=== PATIENT | female | born 1940 | race Caucasian/White ===

== ENCOUNTER → 2017-02-05 | Outpatient (CLI) | payer OTHER | LOC: FIMAGING 11:46 | PROVIDERS: ATTEND Internal Medicine | DX: Z12.31 Encounter for screening mammogram for malignant neoplasm of breast (principal); Z80.3 Family history of malignant neoplasm of breast | CPT/HCPCS: G0202 ==

== ENCOUNTER 2017-10-20 10:35 | Emergency (ER) | payer OTHER ==
[2017-10-20 10:50] VITALS: PULSE 70; RESP 16
--- NOTE | 2017-10-20 11:08 | EDPHY ---
H & P Stated Complaint: R wring finger injury Time Seen by Provider: 10/20/17 11:00 HPI/ROS: CHIEF COMPLAINT: Right hand injury HISTORY OF PRESENT ILLNESS: 77-year-old female arrives via private vehicle complaining of acute right hand and finger pain after she was walking shortly prior to arrival, tripped on a dog's leash landing on her outstretched right hand. She notes a deformity to her 4th digit as well as bleeding from the PIP joint. She also notes right elbow pain right wrist pain. She denies: Head injury, midline C-spine pain, peripheral paresthesia, weakness, numbness, chest pain or trauma, back pain or trauma, alcohol use. Last oral intake was at 10:00 a.m. REVIEW OF SYSTEMS: A ten point review of systems was performed and is negative with the exception of the items mentioned in the HPI PAST MEDICAL/SURGICAL HISTORY: no anticoagulant use, no relevant medical/ surgical history SOCIAL HISTORY: denies alcohol use at time of incident PHYSICAL EXAM 1) GENERAL: Well-developed, well-nourished, alert and oriented. Appears to be in no acute distress. Answering questions appropriately. 2) HEAD: Normocephalic, atraumatic 3) HEENT: Pupils equal, round, reactive to light bilaterally. Negative Horners. Nasopharynx, oropharynx, clear. No deformity or angulation of nose. No septal hematoma. No rhinorrhea. No oral trauma. Ears bilaterally with normal tympanic membranes. No hemotympanum. No fluid or blood in the external auditory canal. No raccoon eyes. No Rodgers sign. Teeth are normally aligned with no gross malocclusion, TMJ bilaterally nontender, facial bones nontender including the zygomatic arch, maxilla mandible. 4) NECK: No cervical collar is on. Posterior cervical spine is nontender, no stepoff, no effusion. Full range of motion which does not elicit any midline cervical spine pain, no posterior midline tenderness, no step-off. 5) LUNGS: Clear to auscultation bilaterally, no wheezes, no rhonchi, no retractions. No obvious signs of trauma. No chest wall pain. No flaring, no grunting. Moving symmetrically. No crepitus. 6) HEART: Regular rate and rhythm, 7) ABDOMEN: No guarding, no rebound, no focal tenderness, no peritoneal signs, no signs of trauma, no ecchymosis 8) MUSCULOSKELETAL: Right upper extremity: Noted lateral deformity of the 4th digit at the PIP joint with laceration on the palmar aspect measuring 2 cm. Palpable osseous structure. . Full sensation two-point discrimination intact distally. Unable to assess flexor function initially. Moving all extremities, no focal areas of tenderness, no obvious trauma. 9) BACK: No midline vertebral tenderness, no fluctuance, no step-off, no obvious trauma, no visual or palpable abnormality. 10) SKIN: No laceration. No abrasion DIFFERENTIAL DIAGNOSIS: In no particular include but limited to open fracture, open dislocation, closed dislocation, closed fracture - Personal History Current Tetanus/Diphtheria Vaccine: Yes Current Tetanus Diphtheria and Acellular Pertussis (TDAP): Yes - Medical/Surgical History Hx Asthma: No Hx Chronic Respiratory Disease: No Hx Diabetes: No Hx Cardiac Disease: Yes Hx Renal Disease: No Hx Cirrhosis: No Hx Alcoholism: No Hx HIV/AIDS: No Hx Splenectomy or Spleen Trauma: No Other PMH: DVT 2003, L foot surgery, SSS, - Social History Smoking Status: Never smoked Constitutional: Initial Vital Signs Temperature (C) 36.9 C 10/20/17 10:46 Heart Rate 70 10/20/17 10:46 Respiratory Rate 16 10/20/17 10:46 Blood Pressure 168/81 H 10/20/17 10:46 O2 Sat (%) 93 10/20/17 10:46 O2 Delivery Mode Room Air Allergies/Adverse Reactions: No Known Allergies Allergy (Unverified 10/20/17 10:46) Home Medications: Medication Instructions Recorded Cephalexin [Keflex] 500 mg PO TID 7 Days cap 10/20/17 Ibuprofen [Motrin (*)] 800 mg PO Q6 #7 tab 10/20/17 Medical Decision Making - Diagnostics Imaging Results: Imaging Impressions Finger X-Ray 10/20/17 10:56 Impression: Fracture dislocation of the right fourth proximal interphalangeal joint. Wrist X-Ray 10/20/17 11:02 Impression: 1. No definite fracture of the right wrist. 2. Severe osteoarthritis right first carpometacarpal joint. Elbow X-Ray 10/20/17 11:03 Impression: No evidence of right elbow fracture, dislocation, or joint effusion. Hand X-Ray 10/20/17 11:50 Impression: 1. No residual dislocation of the right fourth proximal phalanx. 2. Small fracture fragments from the fourth proximal phalanx head again noted. Images reviewed myself Procedures: Procedure: Dislocation reduction. Digital nerve block of 0.5% bupivacaine without epinephrine administered by myself. This is allowed to take effect at which point the dislocation of the 4th digit at the PIP joint was reduced using traction and counter traction technique without complications. Post reduction the patient's neurovascular exam is normal. Post reduction x-ray demonstrates reduction of the joint to the anatomic position. The procedure was performed by myself. Procedure: Splint 1. Aluminum finger was applied by ER tablet technician. After application of the splint I returned and re-examined the patient. The splint was adequately immobilizing the joint and distal to the splint the patient's circulation and sensation were intact. Patient shows no signs of compartment syndrome. Was given orthopedic precautions. Procedure: Splint 2. In upper extremity sling was applied by ER tablet technician. After application of the splint I returned and re-examined the patient. The splint was adequately immobilizing the joint and distal to the splint the patient's circulation and sensation were intact. Patient shows no signs of compartment syndrome. Was given orthopedic precautions. Procedure: Laceration repair. I explained the indications, risks and benefits for both laceration repair and anesthetic administration. Verbal consent was obtained from the patient. The laceration on the 4th digit was anesthetized using 0.5% bupivicaine without epinephrine digital nerve block. After anesthetic administered the patient was observed for a period of time and had no apparent adverse effects. The wound was cleaned, prepped, draped in normal sterile fashion and explored to its base. No foreign body seen, no foreign bodies palpated. No gross FDS or FDP dysfunction. Traumatic arthrotomy not ruled out on exam. The wound was repaired with 5 simple interrupted 5 O Prolene sutures . The wound repair was complex. The procedure was performed by myself. Patient has been informed that scarring will occur, although efforts have been made to minimize this. ED Course/Re-evaluation: 12:20 p.m.: Patient is noted to have an open fracture dislocation of the 4th digit. Traumatic arthrotomy is not ruled out. Phone consultation with on-call hand surgery Dr. Juan Pablo Campoverde who recommends follow up on Sunday (today is Sunday). He agrees with the plan of irrigation wound closure antibiotics splint and follow-up. Care of patient under supervision of secondary supervising physician Dr Fournier . - Data Points Medications Given: Discontinued Medications Cephalexin HCl (Keflex) 500 mg PO EDNOW ONE PRN Reason: Protocol Stop: 10/20/17 13:14 Last Admin: 10/20/17 13:16 Dose: 500 mg Ibuprofen (Motrin) 600 mg PO EDNOW ONE Stop: 10/20/17 12:06 Last Admin: 10/20/17 12:00 Dose: 600 mg Departure - Departure Disposition: Home, Routine, Self-Care Clinical Impression: Elbow pain, right Open finger dislocation Qualifiers: Encounter type: initial encounter Qualified Code(s): S63.259A - Unspecified dislocation of unspecified finger, initial encounter Condition: Good Instructions: Elbow Sprain (ED), Finger Dislocation (ED) Additional Instructions: Return to the ER if you develop redness, swelling, discharge, warmth to the wound, red streaks going up your arm, or any other symptoms that concern you. Referrals: Osiel Campoverde MD [Medical Doctor] - 10/22/17 Prescriptions: Cephalexin [Keflex] 500 mg PO TID 7 Days cap Ibuprofen [Motrin (*)] 800 mg PO Q6 #7 tab
[2017-10-20] MEDS ORDERED: IBUPROFEN 600 MG TAB PO ONE ×2 (12:04→12:05)
[2017-10-20] MEDS ORDERED: CEPHALEXIN 500 MG CAP PO ONE ×2 (13:12→13:13)
[2017-10-20 13:44] VITALS: BP 168/63; TEMP 97.9; O2SAT 95
== END 2017-10-20 13:44 | disposition home or self-care (01) ==
PROC: 0RSWXZZ Reposition Right Finger Phalangeal Joint, External Approach (ICD-10-PCS; principal; 2017-10-20)
PROC: 0HQFXZZ Repair Right Hand Skin, External Approach (ICD-10-PCS; 2017-10-20)
DX: S63.284A Dislocation of proximal interphalangeal joint of right ring finger, initial encounter (principal); S61.214A Laceration without foreign body of right ring finger without damage to nail, initial encounter; S59.901A Unspecified injury of right elbow, initial encounter; W01.0XXA Fall on same level from slipping, tripping and stumbling without subsequent striking against object, initial encounter; Y99.8 Other external cause status; Y93.K1 Activity, walking an animal
CPT/HCPCS: 12001; 26770; 73080; 73110; 73130; 73140; 99283; L3925

== ENCOUNTER 2018-10-22 16:20 | Emergency (ER) | payer OTHER ==
[2018-10-22 16:27] VITALS: BP 177/92
--- NOTE | 2018-10-22 17:31 | EDPHY ---
H & P Stated Complaint: R hip pain s/p fall Time Seen by Provider: 10/22/18 17:01 HPI/ROS: Chief complaint: Right hip pain History of present illness: This is a 78-year-old female who presents to the emergency department for right hip pain. Approximately an hour and half ago she slipped on ice falling directly onto her right hip. Since then she has had pain. The pain is primarily when she moves the hip. She is comfortable when she does not move it. She has been able to walk on it. She denies associated signs or symptoms including no abnormal coolness or paresthesias in the leg. She denies trauma to other parts of the body. - Personal History Current Tetanus/Diphtheria Vaccine: Yes Current Tetanus Diphtheria and Acellular Pertussis (TDAP): Yes - Medical/Surgical History Hx Asthma: No Hx Chronic Respiratory Disease: No Hx Diabetes: No Hx Cardiac Disease: Yes Hx Renal Disease: No Hx Cirrhosis: No Hx Alcoholism: No Hx HIV/AIDS: No Hx Splenectomy or Spleen Trauma: No Other PMH: DVT 2003, L foot surgery, SSS, - Social History Smoking Status: Never smoked - Physical Exam Exam: General: Alert, nontoxic. Skin: No open wounds to the right lower extremity. Musculoskeletal: Tenderness over the lateral aspect of the right hip. There is also tenderness over the anterior aspect of the pelvis on the right side. No crepitus or bony deformity. There is mild discomfort when I abduct the hip. Otherwise movement without discomfort. The rest of the right lower extremities unremarkable. Vascular: DP and PT pulses 2+. Neurologic: Sensation intact in the right lower extremity. Constitutional: Initial Vital Signs Temperature (C) 37.2 C 10/22/18 16:25 Heart Rate 67 10/22/18 16:25 Respiratory Rate 16 10/22/18 16:25 Blood Pressure 177/92 H 10/22/18 16:25 O2 Sat (%) 95 10/22/18 16:25 O2 Delivery Mode Room Air Allergies/Adverse Reactions: No Known Allergies Allergy (Unverified 10/22/18 16:24) Home Medications: Medication Instructions Recorded Blood Pressure Med 10/22/18 oxyCODONE IR [Oxycodone Ir (*)] 5 mg PO Q6 #10 tab 10/22/18 Medical Decision Making - Diagnostics Imaging Results: Imaging Impressions Hip X-Ray 10/22/18 17:02 Impression: Equivocal nondisplaced fracture right pubic bone. Findings discussed with Emergency Department Physician Executive Assistant To President, DEVIKA Caldwell, on October 22, [address] 10/22/18 17:51 Impression: 1. Isolated acute nondisplaced right pubic bone fracture. 2. No femoral neck fracture. 3. No pelvic hematoma or free fluid. Findings discussed with Emergency Department physician assistant womens volleyball coach, DEVIKA Caldwell at 10/22/2018 18:44. Imaging: Discussed imaging studies w/ call center agent Radiologist ED Course/Re-evaluation: Patient seen under the supervision of my primary supervising physician Dr. Ronel Hicks. Patient presents to the emergency department with right hip pain after a trip and fall. X-ray concerning for a fracture, CT scan reveals a fracture. Her right leg is neurovascularly intact. By history and physical exam no evidence of trauma to other parts of the body. On initial evaluation both myself and the nurse offered the patient pain medication, she declined. She has been here to get home. Upon discharge she was having too much pain to ambulate well. Both the nurse and myself encouraged her to accept admission, she declined. She was given ibuprofen and Tylenol. She was eventually able to ambulate. She was given crutches. Discharged home. She is to follow up with Orthopedics within 1 week recheck. Return cautions are given. I did consult with on-call orthopedics, Dr. Phillip. He is comfortable with patient being discharged home. He does recommend she use a walking device such as a walker or cane to help take pressure off the fracture. Differential Diagnosis: Included but not limited to contusion, sprain or strain, bony fracture, joint dislocation - Data Points Medications Given: Discontinued Medications Acetaminophen (Tylenol) 1,000 mg PO EDNOW ONE Stop: 10/22/18 19:32 Last Admin: 10/22/18 19:33 Dose: 1,000 mg Ibuprofen (Motrin) 400 mg PO EDNOW ONE Stop: 10/22/18 19:33 Last Admin: 10/22/18 19:33 Dose: 400 mg Departure - Departure Disposition: Home, Routine, Self-Care Clinical Impression: Pubic bone fracture Qualifiers: Encounter type: initial encounter Sublocation of pubis: unspecified portion of pubis Fracture type: closed Laterality: right Qualified Code(s): S32.501A - Unspecified fracture of right pubis, initial encounter for closed fracture Condition: Good Instructions: Pelvic Fracture (ED) Additional Instructions: Please call Orthopedics tomorrow and arrange a follow-up appointment within 1 week We strongly recommend you use a device to facilitate walking and to take weight off of the injury such as a walker or a cane Ice the injury, 20 min on, 3 times daily for the next [address] ice directly on the skin. Use [id number] Aleve as as directed for the control of pain If the Aleve does not control your pain you can take [id number] extra- strength Tylenol as directed in addition for pain control Take 600 mg of Aleve every 6-8 hours as needed for pain and/or take 600 mg Tylenol every 6-8 hours as needed for pain. If you are still in pain use the oxycodone, please use this sparingly. If symptoms worsen or new symptoms develop return to the emergency room for recheck Referrals: Nataly Rodríguez MD [Primary Care Provider] - As per Instructions Elieser Phillip MD [Medical Doctor] - As per Instructions Savage Galindo MD [Medical Doctor] - As per Instructions Prescriptions: oxyCODONE IR [Oxycodone Ir (*)] 5 mg PO Q6 #10 tab
[2018-10-22] MEDS ORDERED: IBUPROFEN 200 MG TAB PO ONE ×2 (19:30→19:32)
[2018-10-22] MEDS ORDERED: ACETAMINOPHEN 500 MG TAB ONE (19:30)
[2018-10-22] MEDS ORDERED: ACETAMINOPHEN 500 MG TAB PO ONE (19:31)
== END 2018-10-22 20:15 | disposition home or self-care (01) ==
DX: S32.501A Unspecified fracture of right pubis, initial encounter for closed fracture (principal); W00.0XXA Fall on same level due to ice and snow, initial encounter; Y92.9 Unspecified place or not applicable; Y99.9 Unspecified external cause status; Y93.9 Activity, unspecified